=== PATIENT | female | born 1980 | race Caucasian/White ===

== ENCOUNTER → 2016-07-06 | Outpatient (CLI) | payer OTHER ==
--- NOTE | 2016-07-07 11:27 | REP ---
Radionuclide thyroid uptake and scan: There are no comparison ultrasounds, CTs or other imaging studies of the thyroid. There is focal intense uptake in the thyroid left lobe. There is no uptake in the remainder of the thyroid. The findings are nonspecific. This could represent a right hemithyroidectomy or uptake in a hyperactive left lobe thyroid nodule with suppression of the remainder of the gland. Correlation with thyroid ultrasound would be worthwhile. Thyroid uptake: The 6 hour uptake is 9.3% (normal 6% - 12%). The 24 hour uptake is 33.14% (normal 25% - 35%). Impression: Right hemithyroidectomy versus hyperactive left lobe nodule with suppression of the remainder of the gland. Thyroid ultrasonography is recommended for correlation. Signed by Simon Crawford MD 07/07/2016 11:18 A
== END ==
LOC: M RAD 10:29
PROVIDERS: ATTEND Internal Medicine Endocrinology, Diabetes & Metabolism
DX: E05.00 Thyrotoxicosis with diffuse goiter without thyrotoxic crisis or storm (principal)

== ENCOUNTER → 2016-07-27 | Outpatient (CLI) | payer OTHER ==
[2016-07-27 13:59] LABS: FREE T4 1.12 NG/DL (0.76-1.46)
== END ==
LOC: M LAB 12:35
PROVIDERS: ATTEND Internal Medicine Endocrinology, Diabetes & Metabolism
DX: E05.10 Thyrotoxicosis with toxic single thyroid nodule without thyrotoxic crisis or storm (principal)